=== PATIENT | female | born 1995 | race American Indian/Alaskan Native ===

== ENCOUNTER 2021-12-12 08:57 | Emergency (ER) | payer SELFPAY ==
[2021-12-12 10:30] VITALS: BP 130/75
--- NOTE | 2021-12-12 10:31 | Emergency Department Report ---
Stated Complaint: SWOLLEN ANKLE/BUG BITE - HPI History of Present Illness: insect bite x 2week to bilateral ankle and right thigh with no abscess noted. no fever reported. swelling is reported/ - ROS Review of Systems: insect bite to ankle and right thigh - Exam Physical Exam: non labored breathing gait normal MSE screening note: Focused history and physical exam performed. Due to findings the following was ordered: ED Disposition for MSE Condition: Stable
--- NOTE | 2021-12-12 14:03 | Emergency Department Report ---
ED Rash HPI - HPI Chief Complaint: Skin Rash Stated Complaint: SWOLLEN ANKLE/BUG BITE Time Seen by Provider: 12/12/21 12:54 Duration: 3 weeks Location: Lower Extremities Suspected Cause: Insect Rash Symptoms: Yes Itching, No Facial Swelling, No Tongue/Oral Swelling, No Breathing Difficulties, No Choking Sensation, No Wheezing/Dyspnea, No Peeling, No Blistering, No Fever, No Lightheaded, No Malaise, No Myalgias Severity: moderate Other History: 26-year-old female presents with diffuse rash to her lower and upper extremities, which has been going on for the past 3 weeks. Describes the rash as itching, persistent, worsening and appears to be spreading. Patient denies fever, no body aches, no URI symptoms, no headache dizziness or weakness of extremities, she does report that her ankles are beginning to swell. She has not used anything for the rash no when she followed up in the last 3 weeks. No abdominal pain, no chest pain, no fever no headache dizziness or vision changes. has sister also has similar rash but is not as worse . She denies any history of skin condition. ED Review of Systems ROS: Stated complaint: SWOLLEN ANKLE/BUG BITE Other details as noted in HPI Constitutional: denies: chills, fever Eyes: denies: eye pain Respiratory: denies: cough, orthopnea Cardiovascular: denies: chest pain, palpitations Endocrine: denies: excessive sweating, intolerance to cold, intolerance to heat Gastrointestinal: as per HPI. denies: abdominal pain, nausea, vomiting Genitourinary: denies: urgency, dysuria, frequency Musculoskeletal: joint swelling. denies: back pain, arthralgia, myalgia Skin: rash, lesions Neurological: denies: headache, weakness, numbness ED Past Medical Hx - Past Medical History Previous Medical History?: Yes Hx Asthma: Yes - Surgical History Past Surgical History?: No - Medications Home Medications: Home Medications Medication Instructions Recorded Confirmed Last Taken Type Calamine/Menthol/Petrolat/Zinc 113 gm TP TID #1 tube 12/12/21 Unknown Rx [Remedy Calazime Protect Paste] Doxycycline Hyclate [Doxycycline 100 mg PO Q12HR 5 Days tab 12/12/21 Unknown Rx Hyclate TAB] Mupirocin [Bactroban 2%] 1 applic TP TID 5 Days #1 tube 12/12/21 Unknown Rx Rash Exam - Exam General: Vital signs noted. No distress. Alert and acting appropriately. HEENT: No Periorbital Edema, No Conjuctival Injection, No Chemosis, No Perioral Edema, No Tongue Edema, No Uvular Edema, No Compromised Airway, No Drooling Lungs: Yes Good Air Exchange, No Wheezes, No Ronchi, No Stridor, No Cough, No Labored Respirations, No Retractions, No Use of Accessory Muscles, No Other Abnormal Lung Sounds Heart: Yes Regular Skin: Yes Excoriations, Yes Erythema, No Urticarial Rash (Patient has diffuse papular rashes with areas of excoriations and open wounds at different stages of healing in the lower extremities.), No Maculopapular Rash, No Morbilliform rash, No Bulla(e), No Weeping, No Tenderness, No Edema, No Encrustations Other: Positive: Abdomen Normal, Neurologic Normal, Musculoskeletal Normal (There is no obvious swelling or deformity of the extremities, patient ambulates steadily, no pain or discomfort with full range of motion) ED Course Vital Signs 12/12/21 10:26 Temperature 98.5 F Pulse Rate 99 H Respiratory 18 Rate Blood Pressure 130/75 [Left] O2 Sat by Pulse 99 Oximetry ED Medical Decision Making - Medical Decision Making Differential diagnosis includes insect bite, dermatitis, impetigo, monkey Tellez, 26-year-old female presents with diffuse rash to her lower and upper ex tremities, which has been going on for the past 3 weeks. Describes the rash as itching, persistent, worsening and appears to be spreading. Patient denies fever, no body aches, no URI symptoms, no headache dizziness or weakness of extremities, she does report that her ankles are beginning to swell. She has not used anything for the rash no when she followed up in the last 3 weeks. No abdominal pain, no chest pain, no fever no headache dizziness or vision changes. has sister also has similar rash but is not as worse . She denies any history of skin condition. Based on history and exam treated with topical antibiotics, doxycycline for superinfection, symptom management, and a dermatology referral. Patient remained stable nontoxic-appearing, afebrile, ambulating steadily without assistance. Gone over ED findings with patient as well as plan for follow-up. Also discussed return precautions with patient, all questions and concerns addressed. Patient is stable to be discharged follow-up outpatient. Audio voice dictation device used, hence the chart might contain some dictation errors, mispronunciations, wrong spelling and wrong verbiage. Critical care attestation.: If time is entered above; I have spent that time in minutes in the direct care of this critically ill patient, excluding procedure time. ED Disposition Clinical Impression: Rash and nonspecific skin eruption, Skin infection, Insect bite Disposition: HOME / SELF CARE / HOMELESS Is pt being admited?: No Does the pt Need Aspirin: No Condition: Stable Instructions: Rash, Adult Prescriptions: Mupirocin [Bactroban 2%] 1 applic TP TID 5 Days #1 tube Doxycycline Hyclate [Doxycycline Hyclate TAB] 100 mg PO Q12HR 5 Days tab Calamine/Menthol/Petrolat/Zinc [Remedy Calazime Protect Paste] 113 gm TP TID #1 tube Referrals: [facility] [Provider Group] - 3-5 Days
== END 2021-12-12 14:15 | disposition home or self-care (01) ==
LOC: ED 08:57
DX: S90.562A Insect bite (nonvenomous), left ankle, initial encounter (principal); S90.561A Insect bite (nonvenomous), right ankle, initial encounter; L08.89 Other specified local infections of the skin and subcutaneous tissue; J45.909 Unspecified asthma, uncomplicated; Z79.899 Other long term (current) drug therapy; W57.XXXA Bitten or stung by nonvenomous insect and other nonvenomous arthropods, initial encounter; Y93.89 Activity, other specified; Y92.89 Other specified places as the place of occurrence of the external cause; Y99.8 Other external cause status
CPT/HCPCS: 99282